=== PATIENT | male | born 1975 | race Caucasian/White ===

== ENCOUNTER → 2024-09-21 | Outpatient (CLI) | payer BC, SELFPAY ==
[2024-09-21 07:55] LABS: Absolute Lymphocyte Count 3.77 X10^3/uL (0.83-4.51); Absolute Neutrophil Count 7.6 X10^3/uL (2.0-7.7); Basophil# 0.17 X10^3/uL; Basophil% 1.2 % (0-1); Eosinophil# 0.33 X10^3/uL; Eosinophils% 2.3 % (0-5); Hematocrit 45.6 % (40-54); Hemoglobin 15.4 g/dL (13.0-16.5); Lymphocyte # 3.77 X10^3/ul (0.83-4.51); Lymphocyte % 26.8 % (19-41); Mean Corp Hgb Conc 33.8 g/dL (32-36); Mean Corpuscular Hgb 30.1 pg (27.0-32.0); Mean Corpuscular Volume 89.1 fL (80-94); Monocyte# 1.67 X10^3/uL; Monocyte% 11.9 % (0-10); NRBC Flagged by Analyzer 0 % (0-5); Neutrophil # 7.63 X10^3/uL (2.7-7.7); Neutrophil % 54.2 % (47-70); POSITIVE DIFFERENTIAL YES; Platelet Count 284 K/mm3 (150-450); RBC Distribution Width CV 13.4 % (11.6-14.6); RBC Distribution Width SD 43.5 fl (35.1-43.9); Red Blood Count 5.12 M/mm3 (4.6-6.2); White Blood Count 14.1 K/mm3 (4.4-11.0)
[2024-09-21 07:57] LABS: Differential Indicated SCAN CRITERIA MET
[2024-09-21 08:27] LABS: Differential Comment SCANNED; Pathologist Review May foll
[2024-09-21 08:28] LABS: ALB/GLOB Ratio 1.2 RATIO (0.9-2.4); AST(SGOT) 41 U/L (<=37); Alanine Aminotransfer ALT/SGPT 79 U/L (<=46); Alkaline Phosphatase 83 U/L (40-129); Anion Gap 12 (5-15); BUN 25 mg/dL (4-19); BUN/Creat Ratio 28.1 RATIO (10-20); Calcium,Total 9.5 mg/dL (7.6-11.0); Carbon Dioxide 23.6 mmol/L (21.0-32.0); Chloride 102 mmol/L (98-108); Cholesterol 213 mg/dL (<=200); Creatinine, Serum 0.88 mg/dL (0.70-1.20); EST Glomerular Filtration Rate 105 (>60); Globulin 3.4 g/dL (2.2-4.2); Glucose 82 mg/dL (70-99); High Density Lipoprotein 42 mg/dL; Low Density Lipoprotein Calc. 145 mg/dL; PSA,Total - Annual Screen 1.01 ng/mL (0.02-4.00); Protein, Total 7.4 g/dL (5.9-8.4); Sodium Level 138 mmol/L (133-145); Total Bilirubin 0.38 mg/dL (0.00-1.30); Triglycerides 133 mg/dL; Very Low Density Lipoprotein 27 mg/dL (5-40); cholesterol:hdl ratio screen 5.12
== END | disposition home or self-care (01) ==
LOC: LAB 07:32
PROVIDERS: PCP Family Medicine; Referring Provider Family Medicine; Visit Provider Family Medicine
DX: Z00.00 Encounter for general adult medical examination without abnormal findings (principal); Z12.5 Encounter for screening for malignant neoplasm of prostate
CPT/HCPCS: 36415; 80053; 80061; 84153; 85025; G0103

== ENCOUNTER → 2024-09-27 | Outpatient (CLI) | payer BC, SELFPAY | END | disposition home or self-care (01) | LOC: BFHLAB 14:42 | PROVIDERS: PCP Family Medicine; Visit Provider Family Medicine | DX: R53.83 Other fatigue (principal) | CPT/HCPCS: 36415; 84403 ==

== ENCOUNTER → 2024-09-30 | Outpatient (CLI) | payer BC, SELFPAY ==
[2024-09-30 09:01] LABS: Vitamin D,25 Hydroxy 52.6 ng/mL (30-100)
== END | disposition home or self-care (01) ==
LOC: LAB 07:17
PROVIDERS: PCP Family Medicine; Referring Provider Family Medicine; Visit Provider Family Medicine
DX: E29.1 Testicular hypofunction (principal); E55.9 Vitamin D deficiency, unspecified
CPT/HCPCS: 36415; 82306; 84146; 84402; 84403; 84443; 84466